=== PATIENT | male | born 2000 | race Caucasian/White ===

== ENCOUNTER 2023-10-14 21:26 | Observation (INO) | payer BC ==
[~2023-10-14] VITALS: Ht 188 cm; Wt 95.0 kg
[2023-10-14 21:49] LABS: BASO # 0.1 K/mm3 (0.0-0.2); BASO % 0.8 % (0.0-2.0); EOS # 0.2 K/mm3 (0.0-0.7); GRAN # 3.3 K/mm3 (1.4-6.5); GRAN % 45.1 % (42.2-75.2); HEMATOCRIT 44.7 % (36.0-47.0); HEMOGLOBIN 15.4 g/dl (12.5-16.1); LYMPH # 3.2 K/mm3 (1.2-3.4); LYMPH % 43.1 % (20.0-51.0); MEAN CELL VOLUME 87 fl (80.0-95.0); MEAN CORPUSCULAR HEMOGLOBIN 30 pg (26-32); MEAN CORPUSCULAR HGB CONC 35 g/dl (33.0-37.0); MEAN PLATELET VOLUME 9.9 fl (7.4-10.4); MONO # 0.6 K/mm3 (0.1-0.6); MONO % 8.7 % (1.7-9.3); PLATELET COUNT 248 K/mm3 (130-400); RED BLOOD COUNT 5.12 M/mm3 (4.20-5.60)
[2023-10-14 22:00] LABS: ALANINE AMINOTRANSFERASE 23 U/L (0-55); ALBUMIN 4.7 gm/dL (3.5-5.0); ALKALINE PHOSPHATASE 62 U/L (40-150); ANION GAP 21 mmol/L (7-16); AST,SGOT 20 U/L (5-34); BILIRUBIN,TOTAL 0.2 mg/dL (0.2-1.2); BLOOD UREA NITROGEN 21 mg/dL (9-21); CALCIUM 9.8 mg/dL (8.4-10.2); CHLORIDE 106 mmol/L (98-107); CREATININE, serum 1.25 mg/dL (0.72-1.25); GLUCOSE 85 mg/dL (70-99); POTASSIUM 4.1 mmol/L (3.5-4.5); SODIUM 141 mmol/L (136-145); TOTAL PROTEIN 7.8 gm/dL (6.2-8.1)
[2023-10-14 22:01] LABS: CARBON DIOXIDE 14 mmol/L (22-29)
[2023-10-14 22:02] LABS: ALCOHOL(ethanol),MEDICAL < 10 mg/dL (0-10)
[2023-10-14] MEDS ORDERED: NS 1,000 ML IV ONE (22:30)
[2023-10-14] MEDS ORDERED: LR 1,000 ML IV SCH (23:30)
[2023-10-14] MEDS ORDERED: Acetaminophen 325 MG TAB PO PRN (23:30)
[2023-10-14] MEDS ORDERED: LORazepam 2 MG/ML 1 ML VIAL IV PRN (23:45)
[2023-10-15] VITALS (13 sets, daily range): BP systolic 101–132; BP diastolic 54–75; PULSE 57–93; TEMP 97.5–98.4
[2023-10-15] MEDS ORDERED: COMPLETE MULTI1 TAB PO (00:27)
[2023-10-15] MEDS ORDERED: MAGNESIUM GLYC100 MG PO (00:27)
--- NOTE | 2023-10-15 00:30 | NUR ---
PT ARRIVED TO ROOM 358 FROM ED VIA WC & AMBULATED W/ STEADY GAIT TO BED. ADMITTED FOR SEIZURES. PT IS A&O X4. VSS ON ROOM AIR. ON TELE & IS SR. DENYING PAIN OR N/V. LR @ 125 INFUSING TO LEFT AC. SCDS ON. SEIZURE PRECAUTONS IN PLACE. PT ORIENTED TO ROOM & IS DENYING FURTHER NEEDS. CALL LIGHT IN REACH.
--- NOTE | 2023-10-15 02:38 | NUR ---
pt resting in bed with even & unlabored resp. call light in reach
[2023-10-15 07:10] LABS: BASO % 0.4 % (0.0-2.0); EOS # 0.1 K/mm3 (0.0-0.7); EOS % 0.7 % (0.0-4.0); GRAN # 7.5 K/mm3 (1.4-6.5); GRAN % 74.7 % (42.2-75.2); HEMATOCRIT 39.3 % (36.0-47.0); LYMPH # 1.5 K/mm3 (1.2-3.4); LYMPH % 15.4 % (20.0-51.0); MEAN CELL VOLUME 85 fl (80.0-95.0); MEAN CORPUSCULAR HEMOGLOBIN 30 pg (26-32); MEAN CORPUSCULAR HGB CONC 36 g/dl (33.0-37.0); MEAN PLATELET VOLUME 10.2 fl (7.4-10.4); MONO # 0.9 K/mm3 (0.1-0.6); MONO % 8.6 % (1.7-9.3); PLATELET COUNT 190 K/mm3 (130-400); RED BLOOD COUNT 4.64 M/mm3 (4.20-5.60); REDCELL DISTRIBUTION WIDTH-CV 12.1 % (11.5-14.5)
[2023-10-15 07:26] LABS: COLLECTION METHOD CLEAN CATCH
[2023-10-15 07:27] LABS: CREATININE, serum 0.94 mg/dL (0.72-1.25); POTASSIUM 4.1 mmol/L (3.5-4.5)
[2023-10-15 07:47] LABS: TRICYCLIC ANTIDEPRESS URINE NEGATIVE (NEGATIVE)
[2023-10-15 08:21] LABS: SQUAMOUS EPITHELIAL 0-2 /hpf (0-10); URINE APPEARANCE Clear (CLEAR/HAZY); URINE BLOOD Negative (NEGATIVE); URINE COLOR Yellow (YELLOW); URINE GLUCOSE Negative (NEGATIVE); URINE KETONE Negative (NEGATIVE); URINE NITRATE Negative (NEGATIVE); URINE PROTEIN(semi-quant) Negative (NEGATIVE); URINE RBC None Seen /hpf (0-2); URINE UROBILINOGEN 0.2 E.U/dL (0.2-1.0)
[2023-10-15 08:23] LABS: URINE BACTERIA Rare /hpf (NONE SEEN)
--- NOTE | 2023-10-15 09:35 | NUR ---
Initial visit; Patient thanked Field Administrative Assistant for coming in to introduce herself and offer spiritual care. Patient thanked Field Administrative Assistant for offering God's blessings and keeping him in her prayers.
[2023-10-15] MEDS ORDERED: Gadoterate 20 ML VIAL IV ONE (09:55)
[2023-10-15] MEDS ORDERED: levETIRAcetam 100 ML IV ONE (15:30)
--- NOTE | 2023-10-15 15:41 | NUR ---
nozzle and sleeve worker met with patient, patient's mother and patient's girlfriend to discuss discharge planning. Patient lives in [place]. PCP is Dr. Meek at [facility] in [place], preferred pharmacy is [facility]. Best point of contact is his mother, Ayanna, P# [phone]. No DPOA-HC and was not interested at this time with completing one. No DME at this time and is independent with ADLS. Patient's girlfriend, roommate or uber can transport patient. SW was notified patient may be transferred to another facility.
--- NOTE | 2023-10-15 22:39 | NUR ---
Patient assessed around 2109. Alert and oriented, and able to make needs known. Reports mild headache, but declined wanting to take anything for it at that time. Patient did take a shower. IV fluids running per orders to IV site on left AC. Denies SOB and dyspnea. LS CTA. HRR. Telemetry in place. BSAx4. No edema. Patient and his dad are aware that has accepted him, and that he has a bed at , and that we are waiting on transportation to be available to transport. Unit Coordinator stated that one company requested that she call back around midnight to see if they would be able to transport. Patient and dad voiced understanding. Given room number at that he was accepted to. Patient voices no further questions, needs, or concerns at this time. In bed with call light within reach.
[2023-10-16 00:02] VITALS: BP_SYST 101
[2023-10-16 02:05] VITALS: BP 115/71; PULSE 61; TEMP 97.8
[2023-10-16 02:08] VITALS: BP_SYST 115
--- NOTE | 2023-10-16 02:53 | NUR ---
Medicare Coordinator called this nurse at 0157 and stated [facility] would be transporting patient to [facility], and would be here in about 20 minutes. This nusre notified patient and dad who was at bedside. VS: 97.8 61 18 115/71 93% RA. Continues to have LR running to IV on left AC. EMS arrived to medical unit, given report. Patient took phone and wallet with him, and dad took all other belongings with him. Patient left medical floor at 0245. This nurse called business office coordinator at 0248, spoke with Kalpana and updated on time that patient left. Called and gave report to nurse Chang at 0253.
[2023-10-16] MEDS ORDERED: levETIRAcetam 100 ML IV SCH (08:00)
== END 2023-10-16 02:45 | disposition short-term general hospital (02) ==
LOC: COL.ER 21:26 → MEDICAL 23:27
PROVIDERS: Emergency Medicine; Nurse Practitioner Family; ADMIT Internal Medicine
DX: R56.9 Unspecified convulsions (principal); G93.89 Other specified disorders of brain; E87.20 Acidosis, unspecified
CPT/HCPCS: A9575; G0378; J1953; J7030; J7120